=== PATIENT | male | born 1990 | race Caucasian/White ===

== ENCOUNTER → 2024-11-11 | Outpatient (CLI) | payer OTHER ==
--- NOTE | 2024-11-11 14:20 | XR ---
EXAMINATION TYPE: XR tibia fibula LT DATE OF EXAM: 11/11/2024 2:15 PM INDICATION: Patient age:Male; 34 years old; Reason for study: S81.802A UNSPECIFIED OPEN WOUND, LEFT LOWER LEG, INITIAL ENC; PHH. pain COMPARISON: None TECHNIQUE: The left tibia/fibula was examined in AP and lateral projections. FINDINGS: No evidence of any acute osseous pathology, joint dislocation, or soft tissue swelling is n oted. No soft tissue gas or radiopaque foreign body identified. Small posterior calcaneal enthesophyt e. No osseous erosions. Reported wound is not well-visualized. IMPRESSION: No evidence of acute fracture. [facility], , 11/11/2024 2:18 PM
== END | disposition home or self-care (01) ==
LOC: RADXRMAIN 14:02
PROVIDERS: ATTEND Emergency Medicine
DX: S81.802A Unspecified open wound, left lower leg, initial encounter (principal); X58.XXXA Exposure to other specified factors, initial encounter